=== PATIENT | female | born 1965 | race Caucasian/White ===

== ENCOUNTER → 2016-09-24 | Outpatient (CLI) | payer OTHER ==
[~2016-09-24] MED LIST: AMBIEN10 MG PO; ANAPROX DS550 MG PO; ASPIRIN CHILDRE81 MG PO; AUGMENTIN 875 M1 TAB PO; BISOPROLOL5 MG PO; BUSPAR5 MG PO; CARDIZEM120 MG PO; CARDIZEM5 MG/ML PO; CLARITIN-D 12 H1 TAB PO; CLARITIN10 MG PO; COMPAZINE10 MG PO; CYMBALTA60 MG PO; DAYPRO600 M1 PO; ERGOCALCIFER50000 IU; FERROUS SULFAT324 M2 PO; FLAGYL500 MG PO; FLEXERIL10 MG PO; FLONASE 0.05% 121 EA NAS; FLONASE0.05 MG/AC NS; FORADIL AERO0.012 MG INH; LOMOTIL 0.025 M1 TAB PO; MEDROL DOSEPAK4 MG PO; PERIDEX 480 ML480 ML PO; PROTONIX40 MG PO; PROZAC10 MG PO; QVAR0.08 MG/AC INH; QVAR40 MCG INH; ROBAXIN750 MG PO; SINGULAIR10 MG PO; VENTOLIN0.09 MG/AC IH; VICODIN 500 MG-1 TAB PO; VISTARIL50 MG PO; Ventolin 02.5 MG/3 M; ZANTAC150 MG PO
== END | disposition home or self-care (01) ==
LOC: RAD 15:39
DX: M25.512 Pain in left shoulder (principal)

== ENCOUNTER → 2016-11-25 | Outpatient (CLI) | payer OTHER ==
[2016-11-25 16:51] LABS: BASO % 0.2 % (0.0-1.0); EOS # 0.2 10*3/uL (0.0-0.4); EOS % 1.5 % (1.0-4.0); HEMATOCRIT 42.4 % (37.0-47.0); HEMOGLOBIN 13.9 g/dl (12.0-16.0); IG # 0.1 10*3/uL (0.0-0.1); LYMPH # 2.9 10*3/uL (1.3-4.4); LYMPH % 24.2 % (27.0-41.0); MEAN CELL VOLUME 85.5 fl (81.0-99.0); MEAN CORPUSCULAR HGB CONC 32.8 g/dl (33.0-37.0); MEAN PLATELET VOLUME 8.9 fl (9.6-12.3); MONO # 0.7 10*3/uL (0.1-1.0); MONO % 6.1 % (3.0-9.0); NEUT # 8.1 10*3/uL (2.3-7.9); NEUT % 67.3 % (47.0-73.0); PLATELET COUNT AUTOMATED 375 10*3/uL (130-400); RED BLOOD COUNT 4.96 10*6/uL (4.10-5.10); RED CELL DISTRI WIDTH 14.8 % (0-14.5); WHITE BLOOD COUNT 12.1 10*3/uL (4.8-10.8)
== END | disposition home or self-care (01) ==
LOC: LAB 16:09
PROVIDERS: Family Medicine
DX: D72.829 Elevated white blood cell count, unspecified (principal); R70.0 Elevated erythrocyte sedimentation rate; R79.82 Elevated C-reactive protein (CRP)

== ENCOUNTER → 2017-01-28 | Outpatient (CLI) | payer OTHER ==
[2017-01-28 15:41] LABS: BASO % 0.4 % (0.0-1.0); EOS # 0.2 10*3/uL (0.0-0.4); EOS % 1.9 % (1.0-4.0); HEMATOCRIT 38.8 % (37.0-47.0); HEMOGLOBIN 12.7 g/dl (12.0-16.0); IG # 0.1 10*3/uL (0.0-0.1); LYMPH # 1.9 10*3/uL (1.3-4.4); LYMPH % 18.1 % (27.0-41.0); MEAN CELL VOLUME 85.7 fl (81.0-99.0); MEAN CORPUSCULAR HGB CONC 32.7 g/dl (33.0-37.0); MEAN PLATELET VOLUME 8.8 fl (9.6-12.3); MONO # 0.6 10*3/uL (0.1-1.0); MONO % 5.6 % (3.0-9.0); NEUT # 7.6 10*3/uL (2.3-7.9); NEUT % 72.8 % (47.0-73.0); PLATELET COUNT AUTOMATED 339 10*3/uL (130-400); RED BLOOD COUNT 4.53 10*6/uL (4.10-5.10); RED CELL DISTRI WIDTH 14.6 % (0-14.5); WHITE BLOOD COUNT 10.4 10*3/uL (4.8-10.8)
[2017-01-29 08:14] LABS: RHEUMATOID ARTHRITIS FACTOR <10.0 IU/mL (0.0-13.9)
== END | disposition home or self-care (01) ==
LOC: LAB 15:05
PROVIDERS: Family Medicine
DX: D72.829 Elevated white blood cell count, unspecified (principal); R70.0 Elevated erythrocyte sedimentation rate

== ENCOUNTER → 2017-03-02 | Outpatient (CLI) | payer OTHER | END | disposition home or self-care (01) | LOC: LAB 14:36 | DX: E55.9 Vitamin D deficiency, unspecified (principal); R70.0 Elevated erythrocyte sedimentation rate; R79.82 Elevated C-reactive protein (CRP) ==

== ENCOUNTER → 2017-06-14 | Outpatient (CLI) | payer OTHER | END | disposition home or self-care (01) | LOC: RAD 15:33 | DX: M48.061 Spinal stenosis, lumbar region without neurogenic claudication (principal); M77.8 Other enthesopathies, not elsewhere classified ==

== ENCOUNTER → 2017-12-28 | Outpatient (CLI) | payer OTHER ==
[2017-12-28 11:30] LABS: BUN 19 mg/dl (7-24); CREATININE 1.05 mg/dL (0.55-1.02)
== END | disposition home or self-care (01) ==
LOC: CT 11:00 → LAB 11:01
PROVIDERS: Family Medicine
DX: M51.26 Other intervertebral disc displacement, lumbar region (principal)

== ENCOUNTER 2018-08-14 15:23 | Emergency (ER) | payer OTHER ==
[~2018-08-14] VITALS: Ht 170.1 cm; Wt 127.0 kg
--- NOTE | ~2018-08-14 | EKG ---
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
[2018-08-14 15:59] LABS: BASO % 0.4 % (0.0-1.0); EOS # 0.3 10*3/uL (0.0-0.4); EOS % 2.3 % (1.0-4.0); HEMATOCRIT 37.8 % (37.0-47.0); HEMOGLOBIN 12.5 g/dl (12.0-16.0); LYMPH # 2.6 10*3/uL (1.3-4.4); LYMPH % 23.1 % (27.0-41.0); MEAN CELL VOLUME 83.3 fl (81.0-99.0); MEAN CORPUSCULAR HGB 27.5 pg (27.0-31.0); MEAN CORPUSCULAR HGB CONC 33.1 g/dl (33.0-37.0); MEAN PLATELET VOLUME 8.9 fl (9.6-12.3); MONO # 0.7 10*3/uL (0.1-1.0); MONO % 6.6 % (3.0-9.0); NEUT # 7.4 10*3/uL (2.3-7.9); NEUT % 66.9 % (47.0-73.0); PLATELET COUNT AUTOMATED 352 10*3/uL (130-400); RED BLOOD COUNT 4.54 10*6/uL (4.10-5.10); RED CELL DISTRI WIDTH 14.7 % (0-14.5)
[2018-08-14 16:17] LABS: ALBUMIN 3.5 gm/dl (3.1-4.5); ALKALINE PHOSPHATASE 84 U/L (45-117); BUN 11 mg/dl (7-24); CHLORIDE 105 mmol/L (98-107); CREATININE 0.91 mg/dL (0.55-1.02); INTERNATIONAL NORM RATIO 0.9 (2.0-3.5); LIPASE 216 U/L (73-393); POTASSIUM 3.9 mmol/L (3.5-5.1); SGOT/AST 13 IU/L (3-35); SGPT/ALT 19 U/L (12-78); SODIUM 136 mmol/L (136-145); TOTAL PROTEIN 7.5 gm/dL (6.4-8.2)
[2018-08-14 16:18] LABS: TROPONIN I < 0.015 ng/ml (<0.045)
[2018-08-14 18:14] VITALS: BP 115/63
[2018-08-14] MEDS ORDERED: NAPROSYN500 MG PO (20:29)
== END 2018-08-14 20:32 | disposition home or self-care (01) ==
LOC: ED 15:23
PROVIDERS: Physician Assistant
DX: M54.6 Pain in thoracic spine (principal); Z88.6 Allergy status to analgesic agent; Z91.040 Latex allergy status; Z88.8 Allergy status to other drugs, medicaments and biological substances; Z79.899 Other long term (current) drug therapy

== ENCOUNTER → 2018-08-19 | Outpatient (CLI) | payer OTHER ==
[~2018-08-19] MED LIST changes: +NAPROSYN500 MG PO
[2018-08-19 18:51] LABS: THYROID STIM HORMONE (HS) 0.495 uIU/ml (0.358-4.75)
== END | disposition home or self-care (01) ==
LOC: LAB 16:13
PROVIDERS: Family Medicine
DX: E04.9 Nontoxic goiter, unspecified (principal); R73.9 Hyperglycemia, unspecified

== ENCOUNTER → 2018-09-07 | Outpatient (CLI) | payer OTHER | LOC: US 08-26 01:32 | DX: E04.2 Nontoxic multinodular goiter (principal); R73.9 Hyperglycemia, unspecified ==

== ENCOUNTER → 2018-09-27 | Day surgery (SDC) | payer OTHER | END | disposition home or self-care (01) | LOC: SDC 08:07 | PROVIDERS: Family Medicine | DX: E04.1 Nontoxic single thyroid nodule (principal); Z79.899 Other long term (current) drug therapy; Z79.1 Long term (current) use of non-steroidal anti-inflammatories (NSAID); Z88.8 Allergy status to other drugs, medicaments and biological substances; Z91.040 Latex allergy status ==

== ENCOUNTER 2018-10-14 17:13 | Emergency (ER) | payer OTHER ==
[2018-10-14 17:18] VITALS: BP 157/81
== END 2018-10-14 19:52 | disposition home or self-care (01) ==
LOC: ED 17:13
DX: S69.91XA Unspecified injury of right wrist, hand and finger(s), initial encounter (principal); Z88.6 Allergy status to analgesic agent; Z91.040 Latex allergy status; Z88.8 Allergy status to other drugs, medicaments and biological substances; Z79.899 Other long term (current) drug therapy; W18.11XA Fall from or off toilet without subsequent striking against object, initial encounter; Y93.89 Activity, other specified; Y92.89 Other specified places as the place of occurrence of the external cause; Y99.8 Other external cause status

== ENCOUNTER → 2019-10-17 | Outpatient (CLI) | payer OTHER ==
[2019-10-17 16:56] LABS: BASO % 0.3 % (0.0-1.0); EOS # 0.3 10*3/uL (0.0-0.4); EOS % 2.5 % (1.0-4.0); HEMATOCRIT 42.5 % (37.0-47.0); HEMOGLOBIN 13.6 g/dl (12.0-16.0); LYMPH # 3.1 10*3/uL (1.3-4.4); LYMPH % 28.4 % (27.0-41.0); MEAN CELL VOLUME 85.3 fl (81.0-99.0); MEAN CORPUSCULAR HGB 27.3 pg (27.0-31.0); MEAN PLATELET VOLUME 9.1 fl (9.6-12.3); MONO # 0.7 10*3/uL (0.1-1.0); MONO % 6.4 % (3.0-9.0); NEUT # 6.8 10*3/uL (2.3-7.9); NEUT % 61.9 % (47.0-73.0); PLATELET COUNT AUTOMATED 372 10*3/uL (130-400); RED BLOOD COUNT 4.98 10*6/uL (4.10-5.10); RED CELL DISTRI WIDTH 15.7 % (0-14.5); WHITE BLOOD COUNT 10.9 10*3/uL (4.8-10.8)
[2019-10-17 17:12] LABS: ALKALINE PHOSPHATASE 87 U/L (45-117); BILIRUBIN, DIRECT 0.1 mg/dL (0.0-0.2); BUN 14 mg/dl (7-24); CHLORIDE 106 mmol/L (98-107); CHOLESTEROL 193 mg/dL (<200); CREATININE 0.97 mg/dL (0.55-1.02); HDL CHOLESTEROL 41 mg/dl (40-60); LDL CHOLESTEROL 105 mg/dL (9-159); POTASSIUM 3.7 mmol/L (3.5-5.1); SGOT/AST 13 IU/L (3-35); SGPT/ALT 23 U/L (12-78); SODIUM 138 mmol/L (136-145); THYROXINE (T4) TOTAL 9.5 ug/dl (4.8-13.9); TRIGLYCERIDES 233 mg/dl (<150); VLDL CHOLESTEROL 47 mg/dL (6-40)
[2019-10-17 17:18] LABS: THYROID STIM HORMONE (HS) 0.309 uIU/ml (0.358-4.75)
== END | disposition home or self-care (01) ==
LOC: LAB 16:32
PROVIDERS: Family Medicine
DX: E11.9 Type 2 diabetes mellitus without complications (principal); I10 Essential (primary) hypertension

== ENCOUNTER → 2019-11-07 | Outpatient (CLI) | payer OTHER | END | disposition home or self-care (01) | LOC: RAD 11-03 14:00 | DX: N95.9 Unspecified menopausal and perimenopausal disorder (principal) ==

== ENCOUNTER 2019-12-06 13:54 | Emergency (ER) | payer OTHER ==
[~2019-12-06] VITALS: Ht 170.1 cm; Wt 127.0 kg
[2019-12-06 14:00] VITALS: BP 127/66
[2019-12-06] MEDS ORDERED: METHOCARBAMOL500 M1 PO (15:35)
[2019-12-06] MEDS ORDERED: AMOXICILLIN500 M2 PO (15:35)
== END 2019-12-06 15:41 | disposition home or self-care (01) ==
LOC: ED 13:54
DX: S16.1XXA Strain of muscle, fascia and tendon at neck level, initial encounter (principal); H66.91 Otitis media, unspecified, right ear; Z88.6 Allergy status to analgesic agent; Z88.8 Allergy status to other drugs, medicaments and biological substances; Z91.040 Latex allergy status; Z79.899 Other long term (current) drug therapy; X58.XXXA Exposure to other specified factors, initial encounter; Y93.89 Activity, other specified; Y92.89 Other specified places as the place of occurrence of the external cause; Y99.8 Other external cause status

== ENCOUNTER 2020-01-27 12:55 | Emergency (ER) | payer OTHER ==
[~2020-01-27] VITALS: Ht 170.1 cm; Wt 127.0 kg
[~2020-01-27 12:55] MED LIST changes: +AMOXICILLIN500 M2 PO; +METHOCARBAMOL500 M1 PO
[2020-01-27 13:05] VITALS: BP 128/70
[2020-01-27] MEDS ORDERED: PREDNISONE20 M1 PO ×2 (15:23→15:33)
[2020-01-27] MEDS ORDERED: CYCLOBENZAPRINE10 MG PO ×2 (15:23→15:33)
[2020-01-27] MEDS ORDERED: IBU800 MG PO ×2 (15:23→15:33)
== END 2020-01-27 15:44 | disposition home or self-care (01) ==
LOC: ED 12:55
DX: S29.012A Strain of muscle and tendon of back wall of thorax, initial encounter (principal); M54.5 Low back pain; G89.29 Other chronic pain; M62.838 Other muscle spasm; Z88.8 Allergy status to other drugs, medicaments and biological substances; Z91.040 Latex allergy status; Z79.899 Other long term (current) drug therapy; Z79.2 Long term (current) use of antibiotics; X58.XXXA Exposure to other specified factors, initial encounter; Y93.89 Activity, other specified; Y92.89 Other specified places as the place of occurrence of the external cause; Y99.8 Other external cause status

== ENCOUNTER → 2020-04-04 | Outpatient (CLI) | payer OTHER ==
[~2020-04-04] MED LIST changes: +CYCLOBENZAPRINE10 MG PO; +IBU800 MG PO; +PREDNISONE20 M1 PO
[2020-04-04 16:54] LABS: BASO % 0.4 % (0.0-1.0); EOS # 0.2 10*3/uL (0.0-0.4); EOS % 2.1 % (1.0-4.0); HEMATOCRIT 40.1 % (37.0-47.0); LYMPH # 2.8 10*3/uL (1.3-4.4); LYMPH % 32.8 % (27.0-41.0); MEAN CELL VOLUME 84.2 fl (81.0-99.0); MEAN CORPUSCULAR HGB 26.9 pg (27.0-31.0); MEAN CORPUSCULAR HGB CONC 31.9 g/dl (33.0-37.0); MONO # 0.7 10*3/uL (0.1-1.0); MONO % 8.6 % (3.0-9.0); NEUT # 4.7 10*3/uL (2.3-7.9); NEUT % 55.7 % (47.0-73.0); PLATELET COUNT AUTOMATED 335 10*3/uL (130-400); RED BLOOD COUNT 4.76 10*6/uL (4.10-5.10); RED CELL DISTRI WIDTH 15.2 % (0-14.5); WHITE BLOOD COUNT 8.5 10*3/uL (4.8-10.8)
== END | disposition home or self-care (01) ==
LOC: LAB 04:48 → US 17:00
PROVIDERS: Nurse Practitioner Women's Health
DX: N93.9 Abnormal uterine and vaginal bleeding, unspecified (principal); R53.83 Other fatigue; R73.03 Prediabetes

== ENCOUNTER 2020-04-27 12:28 | Observation (INO) | payer OTHER ==
[~2020-04-27] VITALS: Ht 170.1 cm; Wt 131.7 kg
--- NOTE | 2020-04-27 13:20 | NUR ---
PATIENT DENIES WOUNDS. A&OX4.
[2020-04-27 13:21] VITALS: BP 97/80
[2020-04-27 13:47] LABS: BASO % 0.5 % (0.0-1.0); EOS # 0.2 10*3/uL (0.0-0.4); EOS % 1.7 % (1.0-4.0); HEMATOCRIT 38.9 % (37.0-47.0); LYMPH # 2.2 10*3/uL (1.3-4.4); LYMPH % 24.6 % (27.0-41.0); MEAN CELL VOLUME 84.9 fl (81.0-99.0); MEAN CORPUSCULAR HGB 27.3 pg (27.0-31.0); MEAN CORPUSCULAR HGB CONC 32.1 g/dl (33.0-37.0); MEAN PLATELET VOLUME 8.9 fl (9.6-12.3); MONO # 0.5 10*3/uL (0.1-1.0); MONO % 6.1 % (3.0-9.0); NEUT # 5.9 10*3/uL (2.3-7.9); NEUT % 66.5 % (47.0-73.0); PLATELET COUNT AUTOMATED 305 10*3/uL (130-400); RED BLOOD COUNT 4.58 10*6/uL (4.10-5.10); WHITE BLOOD COUNT 8.9 10*3/uL (4.8-10.8)
[2020-04-27 13:58] LABS: ACT PARTIAL THROMBO TIME 24.4 SECONDS (20.0-32.1)
[2020-04-27 14:09] LABS: ALBUMIN 3.8 gm/dl (3.1-4.5); ALKALINE PHOSPHATASE 71 U/L (45-117); BUN 15 mg/dl (7-24); CHLORIDE 107 mmol/L (98-107); CREATININE 0.86 mg/dL (0.55-1.02); LIPASE 162 U/L (73-393); POTASSIUM 4.1 mmol/L (3.5-5.1); SGOT/AST 17 IU/L (3-35); SGPT/ALT 21 U/L (12-78); SODIUM 142 mmol/L (136-145); TOTAL PROTEIN 7.6 gm/dL (6.4-8.2)
[2020-04-27 14:11] LABS: TROPONIN I < 0.015 ng/ml (<0.045)
--- NOTE | 2020-04-27 14:15 | NUR ---
PATIENT STATES SHE HAS HAD A LITTLE RELIEF FORM THE NITRO. CHEST PRESSURE HAS DECREASED.
[2020-04-27 15:43] VITALS: BP 131/81
--- NOTE | 2020-04-27 15:47 | NUR ---
PATIENT TRANSPORTED TO 4TH FLOOR AT THIS TIME. REPORT GIVEN TO CHARLY CLAROS. SBAR FAXED. ALEXI CLAROS TRANSPORTED PATIENT TO 4TH FLOOR. NO CHANGE IN PATIENT STATUS.
[2020-04-27] MEDS ORDERED: NEURONTIN300 MG PO (16:02)
[2020-04-27] MEDS ORDERED: REXULTI2 MG PO (16:03)
[2020-04-27] MEDS ORDERED: REMERON30 M1 PO (16:05)
[2020-04-27 16:14] VITALS: BP 140/63
--- NOTE | 2020-04-27 16:14 | NUR ---
[facility] 55, admitted to , under the services of OBDULIO Bonilla DO with a diagnosis of CHEST PAIN. Chief complaint is DENIES C/O. Patient arrived via bed from ER. Monitor applied. Initial assessment completed. Vital signs taken and recorded. OBDULIO BONILLA DO notified of admission to the unit. Orders received. See assessment for past medical history, medications and allergies. Patient and/or family oriented to unit. [facility] visitation policy reviewed. Clothing/patient valuable form completed. CHARLY GOMEZ
--- NOTE | 2020-04-27 19:35 | NUR ---
PRN IBUPROFEN GIVEN FOR PT COMPLAINTS OF A MILD HEADACHE. RATING IT 4/10. CALL LIGHT WITHIN REACH, WILL MONITOR
[2020-04-27] MEDS ORDERED: COREG12.5 M1 PO (19:41)
--- NOTE | 2020-04-27 19:46 | NUR ---
ASKED PATIENT WHAT MEDICATION SHE WOULD NEED FOR THE NIGHT ONE HER MEDICATION CLAIMS HISTORY. BEGAN GOING OVER MEDICATIONS AND SHE STATED A COUPLE OF THE MEDICINES WERE TWICE A DAY AND SOME HAVE BEEN CHANGED. ASKED PATIENT IF SHE WOULD BE ABLE TO HAVE HER BRING THE MEDICATIONS IN SO WE CAN GET THE RIGHT MEDICATIONS FOR HER MED REC. SHE STATED SHE WILL TRY AND GET A HOLD OF HIM SO HE CAN BRING THEM IN. INSTRUCTED PATIENT TO HAVE HIM DROP THE MEDICATIONS OFF AT THE ER LOBBY AND THIS NURSE WILL GO GET THEM
[2020-04-27 20:00] VITALS: BP 122/73
--- NOTE | 2020-04-27 20:30 | NUR ---
PRN IBUPROFEN EFFECTIVE PER PT
[2020-04-27] MEDS ORDERED: PROPAFENONE HC150 MG PO (21:00)
[2020-04-27] MEDS ORDERED: STIMULANT LAXA1 EACH PO (21:03)
[2020-04-27] MEDS ORDERED: VITAMIN D3125 MC1 PO (21:06)
[2020-04-27] MEDS ORDERED: HYDROCORTISONE30 GM T (21:07)
--- NOTE | 2020-04-27 21:14 | NUR ---
NOTIFIED DR. FRANCE OF UPDATED MED LIST
--- NOTE | 2020-04-27 21:14 | NUR ---
PATIENTS BROUGHT MEDICATIONS IN FROM HOME. MED REC UPDATED PER PT AND MEDICATIONS BROUGHT FROM HOME
--- NOTE | 2020-04-27 21:56 | NUR ---
OK PER DR. FRANCE TO CONTINUE PATIENTS REXULTI
[2020-04-28] VITALS: BP 127/74
--- NOTE | 2020-04-28 01:45 | NUR ---
PATIENT SLEEPING, NO DISTRESS NOTED. CALL LIGHT WTIHIN REACH, WILL MONITOR
--- NOTE | 2020-04-28 01:48 | NUR ---
24 HR chart check completed.
[2020-04-28 06:16] LABS: BASO % 0.4 % (0.0-1.0); EOS # 0.3 10*3/uL (0.0-0.4); HEMATOCRIT 37.2 % (37.0-47.0); LYMPH # 3.4 10*3/uL (1.3-4.4); LYMPH % 34.4 % (27.0-41.0); MEAN CELL VOLUME 83.6 fl (81.0-99.0); MEAN CORPUSCULAR HGB 26.7 pg (27.0-31.0); MEAN PLATELET VOLUME 9.2 fl (9.6-12.3); MONO # 0.8 10*3/uL (0.1-1.0); MONO % 7.5 % (3.0-9.0); NEUT # 5.4 10*3/uL (2.3-7.9); NEUT % 54.2 % (47.0-73.0); PLATELET COUNT AUTOMATED 284 10*3/uL (130-400); RED BLOOD COUNT 4.45 10*6/uL (4.10-5.10); RED CELL DISTRI WIDTH 15.1 % (0-14.5); WHITE BLOOD COUNT 9.9 10*3/uL (4.8-10.8)
[2020-04-28 06:36] LABS: ACT PARTIAL THROMBO TIME 24.9 SECONDS (20.0-32.1)
[2020-04-28 06:44] LABS: ALBUMIN 3.4 gm/dl (3.1-4.5); ALKALINE PHOSPHATASE 64 U/L (45-117); BUN 17 mg/dl (7-24); CHLORIDE 107 mmol/L (98-107); CHOLESTEROL 203 mg/dL (<200); CREATININE 0.89 mg/dL (0.55-1.02); FREE T4 0.91 ng/dl (0.76-1.46); POTASSIUM 3.5 mmol/L (3.5-5.1); SGOT/AST 11 IU/L (3-35); SGPT/ALT 22 U/L (12-78); SODIUM 140 mmol/L (136-145); TOTAL PROTEIN 6.8 gm/dL (6.4-8.2)
[2020-04-28 06:48] LABS: HDL CHOLESTEROL 44 mg/dl (40-60); LDL CHOLESTEROL 125 mg/dL (9-159); THYROID STIM HORMONE (HS) 0.498 uIU/ml (0.358-4.75); TRIGLYCERIDES 172 mg/dl (<150); VLDL CHOLESTEROL 34 mg/dL (6-40)
[2020-04-28 07:32] LABS: VITAMIN D, 25-HYDROXY 65.1 ng/mL (30-100)
[2020-04-28 08:00] VITALS: BP 137/86
--- NOTE | 2020-04-28 08:38 | NUR ---
24 HR chart check completed.
--- NOTE | 2020-04-28 09:30 | NUR ---
RESTING IN BED WITH NO ACUTE DISTRESS NOTED. RESPIRATIONS EASY. LUNGS DIMINISHED, CLEAR. PULSE OX 98% RA. DENIES CHEST PAIN. CALL LIGHT WITHIN REACH. NO VOICED COMPLAINTS
--- NOTE | 2020-04-28 10:45 | NUR ---
DR PERAZA AND RESIDENTS PRESENT ON FLOOR TO ROUND AND DISCUSS PLAN OF CARE
--- NOTE | 2020-04-28 12:45 | NUR ---
Discharge instructions reviewed with patient/family. Patient receptive and verbalizes understanding. Written instructions given to patient/family. PATIENT DISCHARGED VIA WC. ANNA DOCKERY
== END 2020-04-28 12:45 | disposition home or self-care (01) ==
LOC: ED 12:28 → EDHOLD 15:00 → 4E 15:36
PROVIDERS: Nurse Practitioner Family; Social Worker Clinical; ADMIT Student in an Organized Health Care Education/Training Program
DX: R07.89 Other chest pain (principal); E83.41 Hypermagnesemia; R73.9 Hyperglycemia, unspecified; R79.82 Elevated C-reactive protein (CRP); M54.5 Low back pain; G89.29 Other chronic pain; I10 Essential (primary) hypertension; I48.0 Paroxysmal atrial fibrillation

== ENCOUNTER 2020-06-22 15:09 | Emergency (ER) | payer OTHER ==
[~2020-06-22] VITALS: Ht 170.1 cm; Wt 127.0 kg
[~2020-06-22 15:09] MED LIST changes: +COREG12.5 M1 PO; +HYDROCORTISONE30 GM T; +NEURONTIN300 MG PO; +PROPAFENONE HC150 MG PO; +REMERON30 M1 PO; +REXULTI2 MG PO; +STIMULANT LAXA1 EACH PO; +VITAMIN D3125 MC1 PO
[2020-06-22 15:17] VITALS: BP 136/68
[2020-06-22] MEDS ORDERED: OFLOXACIN OTIC5 ML OPH (15:53)
== END 2020-06-22 16:15 | disposition home or self-care (01) ==
LOC: ED 15:09
DX: H60.91 Unspecified otitis externa, right ear (principal); Z91.040 Latex allergy status; Z88.8 Allergy status to other drugs, medicaments and biological substances; Z79.899 Other long term (current) drug therapy

== ENCOUNTER 2020-09-16 08:26 | Emergency (ER) | payer OTHER ==
[~2020-09-16] VITALS: Ht 170.1 cm; Wt 127.0 kg
[~2020-09-16 08:26] MED LIST changes: +OFLOXACIN OTIC5 ML OPH
[2020-09-16 08:35] VITALS: BP 136/84
== END 2020-09-16 09:47 | disposition home or self-care (01) ==
LOC: ED 08:26
DX: J06.9 Acute upper respiratory infection, unspecified (principal); K21.9 Gastro-esophageal reflux disease without esophagitis; I10 Essential (primary) hypertension; M19.09 Primary osteoarthritis, other specified site; F32.9 Major depressive disorder, single episode, unspecified; F41.9 Anxiety disorder, unspecified; Z20.822 Contact with and (suspected) exposure to COVID-19; Z88.6 Allergy status to analgesic agent; Z88.8 Allergy status to other drugs, medicaments and biological substances; Z91.040 Latex allergy status; Z79.899 Other long term (current) drug therapy; Z98.890 Other specified postprocedural states; Z90.89 Acquired absence of other organs; Z87.891 Personal history of nicotine dependence

== ENCOUNTER → 2020-09-26 | Outpatient (CLI) | payer OTHER | END | disposition home or self-care (01) | LOC: RAD 11:51 | PROVIDERS: ATTEND Family Medicine | DX: M47.812 Spondylosis without myelopathy or radiculopathy, cervical region (principal); R06.02 Shortness of breath; M25.78 Osteophyte, vertebrae ==

== ENCOUNTER 2020-11-14 09:53 | Emergency (ER) | payer OTHER ==
[2020-11-14 09:58] VITALS: BP 152/81
[2020-11-14 10:43] LABS: BASO % 0.4 % (0.0-1.0); EOS # 0.2 10*3/uL (0.0-0.4); EOS % 2.1 % (1.0-4.0); HEMATOCRIT 39.9 % (37.0-47.0); LYMPH # 2.2 10*3/uL (1.3-4.4); LYMPH % 27.6 % (27.0-41.0); MEAN CELL VOLUME 86.4 fl (81.0-99.0); MEAN CORPUSCULAR HGB 26.8 pg (27.0-31.0); MEAN CORPUSCULAR HGB CONC 31.1 g/dl (33.0-37.0); MEAN PLATELET VOLUME 9.1 fl (9.6-12.3); MONO # 0.6 10*3/uL (0.1-1.0); MONO % 7.4 % (3.0-9.0); NEUT % 61.8 % (47.0-73.0); PLATELET COUNT AUTOMATED 306 10*3/uL (130-400); RED BLOOD COUNT 4.62 10*6/uL (4.10-5.10); RED CELL DISTRI WIDTH 16.1 % (0-14.5); WHITE BLOOD COUNT 8.1 10*3/uL (4.8-10.8)
[2020-11-14 10:54] LABS: INTERNATIONAL NORM RATIO 0.9 (2.0-3.5)
[2020-11-14 11:00] LABS: ALBUMIN 3.4 gm/dl (3.1-4.5); ALKALINE PHOSPHATASE 80 U/L (45-117); BUN 21 mg/dl (7-24); CHLORIDE 110 mmol/L (98-107); CREATININE 1.06 mg/dL (0.55-1.02); POTASSIUM 3.9 mmol/L (3.5-5.1); SGOT/AST 11 IU/L (3-35); SGPT/ALT 19 U/L (12-78); SODIUM 144 mmol/L (136-145); TOTAL PROTEIN 7.3 gm/dL (6.4-8.2)
[2020-11-14 11:04] LABS: TROPONIN I < 0.015 ng/ml (<0.045)
[2020-11-14] MEDS ORDERED: MEDROL DOSEPAK4 MG PO ×3 (13:29→13:58)
== END 2020-11-14 13:46 | disposition home or self-care (01) ==
LOC: ED 09:53
PROVIDERS: Emergency Medicine
DX: J45.901 Unspecified asthma with (acute) exacerbation (principal); I10 Essential (primary) hypertension; K21.9 Gastro-esophageal reflux disease without esophagitis; F41.9 Anxiety disorder, unspecified; F32.9 Major depressive disorder, single episode, unspecified; M19.90 Unspecified osteoarthritis, unspecified site; Z91.040 Latex allergy status; Z88.8 Allergy status to other drugs, medicaments and biological substances; Z79.899 Other long term (current) drug therapy; Z98.890 Other specified postprocedural states

== ENCOUNTER → 2021-01-03 | Outpatient (CLI) | payer OTHER | END | disposition home or self-care (01) | LOC: RAD 14:22 | PROVIDERS: ATTEND Family Medicine | DX: M51.34 Other intervertebral disc degeneration, thoracic region (principal); M48.04 Spinal stenosis, thoracic region; M25.78 Osteophyte, vertebrae ==

== ENCOUNTER 2021-03-24 12:24 | Inpatient (IN) | payer OTHER ==
[~2021-03-24] VITALS: Ht 170.2 cm; Wt 139.0 kg
[2021-03-24 12:37] VITALS: BP 132/68
[2021-03-24 12:55] LABS: BASO % 0.3 % (0.0-1.0); EOS # 0.3 10*3/uL (0.0-0.4); HEMATOCRIT 39.6 % (37.0-47.0); LYMPH # 2.2 10*3/uL (1.3-4.4); LYMPH % 23.4 % (27.0-41.0); MEAN CELL VOLUME 84.1 fl (81.0-99.0); MEAN CORPUSCULAR HGB CONC 32.1 g/dl (33.0-37.0); MEAN PLATELET VOLUME 9.2 fl (9.6-12.3); MONO # 0.7 10*3/uL (0.1-1.0); MONO % 7.9 % (3.0-9.0); NEUT # 6.1 10*3/uL (2.3-7.9); NEUT % 64.7 % (47.0-73.0); PLATELET COUNT AUTOMATED 359 10*3/uL (130-400); RED BLOOD COUNT 4.71 10*6/uL (4.10-5.10); RED CELL DISTRI WIDTH 15.1 % (0-14.5); WHITE BLOOD COUNT 9.4 10*3/uL (4.8-10.8)
[2021-03-24 13:14] LABS: ALBUMIN 3.6 gm/dl (3.1-4.5); ALKALINE PHOSPHATASE 89 U/L (45-117); BUN 16 mg/dl (7-24); CHLORIDE 107 mmol/L (98-107); CREATININE 0.93 mg/dL (0.55-1.02); POTASSIUM 3.8 mmol/L (3.5-5.1); SGOT/AST 13 IU/L (3-35); SGPT/ALT 19 U/L (12-78); SODIUM 138 mmol/L (136-145); TOTAL PROTEIN 7.4 gm/dL (6.4-8.2)
[2021-03-24 13:16] LABS: TROPONIN I < 0.015 ng/ml (<0.045)
[2021-03-24 13:52] VITALS: BP 126/77
[2021-03-24 17:07] VITALS: BP 137/78
[2021-03-24 18:52] VITALS: BP 116/68
[2021-03-24] MEDS ORDERED: SYMB160 INH (21:36)
[2021-03-24] MEDS ORDERED: NEURONTIN300 MG PO (21:37)
[2021-03-25 00:45] VITALS: BP 103/61
[2021-03-25 04:23] VITALS: BP 118/77
[2021-03-25 05:38] LABS: ALBUMIN 3.4 gm/dl (3.1-4.5); BUN 19 mg/dl (7-24); CHLORIDE 107 mmol/L (98-107); POTASSIUM 3.5 mmol/L (3.5-5.1); SODIUM 137 mmol/L (136-145)
[2021-03-25 05:41] LABS: ALKALINE PHOSPHATASE 82 U/L (45-117); CHOLESTEROL 192 mg/dL (<200); CREATININE 0.97 mg/dL (0.55-1.02); SGOT/AST 14 IU/L (3-35); SGPT/ALT 18 U/L (12-78); TOTAL PROTEIN 7.2 gm/dL (6.4-8.2); TRIGLYCERIDES 187 mg/dl (<150)
[2021-03-25 05:47] LABS: LDL CHOLESTEROL 116 mg/dL (9-159)
[2021-03-25 06:05] LABS: BASO # 0.1 10*3/uL (0.0-0.1); BASO % 0.5 % (0.0-1.0); EOS # 0.4 10*3/uL (0.0-0.4); EOS % 3.4 % (1.0-4.0); HEMATOCRIT 38.1 % (37.0-47.0); LYMPH # 3.3 10*3/uL (1.3-4.4); LYMPH % 30.4 % (27.0-41.0); MEAN CELL VOLUME 85.2 fl (81.0-99.0); MEAN CORPUSCULAR HGB 27.1 pg (27.0-31.0); MEAN CORPUSCULAR HGB CONC 31.8 g/dl (33.0-37.0); MEAN PLATELET VOLUME 9.4 fl (9.6-12.3); MONO # 0.9 10*3/uL (0.1-1.0); MONO % 8.5 % (3.0-9.0); NEUT # 6.2 10*3/uL (2.3-7.9); NEUT % 56.5 % (47.0-73.0); PLATELET COUNT AUTOMATED 349 10*3/uL (130-400); RED BLOOD COUNT 4.47 10*6/uL (4.10-5.10); RED CELL DISTRI WIDTH 15.5 % (0-14.5)
[2021-03-25 07:06] VITALS: BP 123/71
[2021-03-25 12:00] VITALS: BP 130/74
[2021-03-25] MEDS ORDERED: PANTOPRAZOLE SO40 MG PO (14:49)
== END 2021-03-25 17:50 | disposition home or self-care (01) | DRG 243 ==
LOC: ED 12:24 → 4E 15:02 → EDHOLD 15:02 → 4E 03-25 06:55
PROVIDERS: Emergency Medicine; Student in an Organized Health Care Education/Training Program; ADMIT Internal Medicine; ATTEND Internal Medicine
PROC: 4A02XM4 Measurement of Cardiac Total Activity, External Approach (ICD-10-PCS; principal; 2021-03-25)
PROC: 3E073KZ Introduction of Other Diagnostic Substance into Coronary Artery, Percutaneous Approach (ICD-10-PCS; 2021-03-25)
DX: K21.9 Gastro-esophageal reflux disease without esophagitis (principal); E83.41 Hypermagnesemia; M54.5 Low back pain; F32.9 Major depressive disorder, single episode, unspecified; G62.9 Polyneuropathy, unspecified; I10 Essential (primary) hypertension; G89.29 Other chronic pain; R73.9 Hyperglycemia, unspecified; D72.810 Lymphocytopenia; E78.1 Pure hyperglyceridemia; E66.9 Obesity, unspecified; Z82.0 Family history of epilepsy and other diseases of the nervous system; Z80.52 Family history of malignant neoplasm of bladder; Z91.041 Radiographic dye allergy status; Z87.09 Personal history of other diseases of the respiratory system; Z91.040 Latex allergy status; Z88.8 Allergy status to other drugs, medicaments and biological substances; Z88.6 Allergy status to analgesic agent; Z79.899 Other long term (current) drug therapy; Z88.2 Allergy status to sulfonamides

== ENCOUNTER 2021-05-23 19:25 | Emergency (ER) | payer OTHER ==
[~2021-05-23] VITALS: Ht 170.1 cm; Wt 127.0 kg
[~2021-05-23 19:25] MED LIST changes: +PANTOPRAZOLE SO40 MG PO; +SYMB160 INH
[2021-05-23 21:18] VITALS: BP 146/87
== END 2021-05-24 00:18 | disposition left against medical advice (07) ==
LOC: ED 19:25
DX: R06.02 Shortness of breath (principal); R42 Dizziness and giddiness; R05 Cough; Z53.21 Procedure and treatment not carried out due to patient leaving prior to being seen by health care provider

== ENCOUNTER 2021-05-24 11:56 | Emergency (ER) | payer OTHER ==
[2021-05-24 12:12] VITALS: BP 126/78
[2021-05-24 13:04] LABS: BASO % 0.3 % (0.0-1.0); EOS # 0.1 10*3/uL (0.0-0.4); EOS % 1.7 % (1.0-4.0); HEMATOCRIT 43.6 % (37.0-47.0); LYMPH # 1.4 10*3/uL (1.3-4.4); LYMPH % 39.5 % (27.0-41.0); MEAN CELL VOLUME 84.5 fl (81.0-99.0); MEAN CORPUSCULAR HGB 26.4 pg (27.0-31.0); MEAN CORPUSCULAR HGB CONC 31.2 g/dl (33.0-37.0); MEAN PLATELET VOLUME 9.6 fl (9.6-12.3); MONO # 0.4 10*3/uL (0.1-1.0); MONO % 11.6 % (3.0-9.0); NEUT # 1.7 10*3/uL (2.3-7.9); NEUT % 46.3 % (47.0-73.0); PLATELET COUNT AUTOMATED 259 10*3/uL (130-400); RED BLOOD COUNT 5.16 10*6/uL (4.10-5.10); RED CELL DISTRI WIDTH 15.2 % (0-14.5); WHITE BLOOD COUNT 3.6 10*3/uL (4.8-10.8)
[2021-05-24 13:19] LABS: ALBUMIN 3.9 gm/dl (3.1-4.5); ALKALINE PHOSPHATASE 95 U/L (45-117); BUN 14 mg/dl (7-24); CHLORIDE 106 mmol/L (98-107); LIPASE 176 U/L (73-393); POTASSIUM 3.5 mmol/L (3.5-5.1); SGOT/AST 29 IU/L (3-35); SGPT/ALT 26 U/L (12-78); SODIUM 139 mmol/L (136-145)
[2021-05-24 13:22] LABS: TROPONIN I < 0.015 ng/ml (<0.045)
== END 2021-05-24 23:52 | disposition home or self-care (01) ==
LOC: ED 11:56
PROVIDERS: Nurse Practitioner Family
DX: U07.1 COVID-19 (principal); K21.9 Gastro-esophageal reflux disease without esophagitis; I10 Essential (primary) hypertension; I48.91 Unspecified atrial fibrillation; J44.9 Chronic obstructive pulmonary disease, unspecified; Z87.891 Personal history of nicotine dependence; Z98.890 Other specified postprocedural states; Z79.899 Other long term (current) drug therapy; Z91.040 Latex allergy status; Z88.5 Allergy status to narcotic agent; Z88.6 Allergy status to analgesic agent

== ENCOUNTER 2021-09-17 07:21 | Emergency (ER) | payer OTHER ==
[~2021-09-17] VITALS: Ht 170.1 cm; Wt 127.0 kg
[2021-09-17 07:39] VITALS: BP 146/94
== END 2021-09-17 09:41 | disposition home or self-care (01) ==
LOC: ED 07:21
DX: S01.81XA Laceration without foreign body of other part of head, initial encounter (principal); E04.9 Nontoxic goiter, unspecified; Z88.6 Allergy status to analgesic agent; Z88.8 Allergy status to other drugs, medicaments and biological substances; Z91.040 Latex allergy status; Z79.899 Other long term (current) drug therapy; Z87.891 Personal history of nicotine dependence; W01.0XXA Fall on same level from slipping, tripping and stumbling without subsequent striking against object, initial encounter; Y93.89 Activity, other specified; Y92.89 Other specified places as the place of occurrence of the external cause; Y99.8 Other external cause status

== ENCOUNTER → 2021-10-16 | Outpatient (CLI) | payer OTHER | END | disposition home or self-care (01) | LOC: US 09-25 16:00 | PROVIDERS: ATTEND Family Medicine | DX: E04.2 Nontoxic multinodular goiter (principal) ==

== ENCOUNTER → 2021-10-20 | Outpatient (CLI) | payer OTHER | END | disposition home or self-care (01) | LOC: COVID19 15:51 | PROVIDERS: ATTEND Family Medicine | DX: Z20.822 Contact with and (suspected) exposure to COVID-19 (principal) ==

== ENCOUNTER 2021-10-28 14:50 | Emergency (ER) | payer OTHER ==
[2021-10-28 14:57] VITALS: BP 144/65
[2021-10-28] MEDS ORDERED: AUGMENTIN 875-875 MG PO (17:07)
== END 2021-10-28 17:11 | disposition home or self-care (01) ==
LOC: ED 14:50
DX: J32.9 Chronic sinusitis, unspecified (principal); Z88.8 Allergy status to other drugs, medicaments and biological substances; Z91.040 Latex allergy status; Z79.899 Other long term (current) drug therapy; Z90.89 Acquired absence of other organs; Z98.890 Other specified postprocedural states; Z87.891 Personal history of nicotine dependence

== ENCOUNTER → 2021-12-10 | Outpatient (CLI) | payer OTHER ==
[~2021-12-10] MED LIST changes: +AUGMENTIN 875-875 MG PO
== END | disposition home or self-care (01) ==
LOC: EDSTATUS 13:00 → SDC 13:00
PROVIDERS: ATTEND Family Medicine
DX: E04.1 Nontoxic single thyroid nodule (principal)

== ENCOUNTER → 2021-12-26 | Outpatient (CLI) | payer OTHER ==
[2021-12-26 16:03] LABS: BASO % 0.3 % (0.0-1.0); EOS # 0.2 10*3/uL (0.0-0.4); HEMATOCRIT 39.3 % (37.0-47.0); LYMPH # 2.4 10*3/uL (1.3-4.4); LYMPH % 22.5 % (27.0-41.0); MEAN CORPUSCULAR HGB 27.1 pg (27.0-31.0); MEAN CORPUSCULAR HGB CONC 32.3 g/dl (33.0-37.0); MEAN PLATELET VOLUME 8.9 fl (9.6-12.3); MONO # 0.7 10*3/uL (0.1-1.0); MONO % 6.2 % (3.0-9.0); NEUT # 7.2 10*3/uL (2.3-7.9); NEUT % 68.2 % (47.0-73.0); PLATELET COUNT AUTOMATED 315 10*3/uL (130-400); RED BLOOD COUNT 4.68 10*6/uL (4.10-5.10); RED CELL DISTRI WIDTH 17.1 % (0-14.5); WHITE BLOOD COUNT 10.6 10*3/uL (4.8-10.8)
[2021-12-26 16:22] LABS: BUN 14 mg/dl (7-24); CHLORIDE 107 mmol/L (98-107); CHOLESTEROL 224 mg/dL (<200); POTASSIUM 3.9 mmol/L (3.5-5.1); SGOT/AST 20 IU/L (3-35); SGPT/ALT 28 U/L (12-78); SODIUM 143 mmol/L (136-145); TOTAL PROTEIN 7.5 gm/dL (6.4-8.2); TRIGLYCERIDES 192 mg/dl (<150)
[2021-12-26 16:26] LABS: ALKALINE PHOSPHATASE 83 U/L (45-117); LDL CHOLESTEROL 137 mg/dL (9-159); THYROID STIM HORMONE (HS) 0.484 uIU/ml (0.358-4.75); THYROXINE (T4) TOTAL 7.7 ug/dl (4.8-13.9)
== END | disposition home or self-care (01) ==
LOC: LAB 15:47
PROVIDERS: ATTEND Family Medicine
DX: E55.9 Vitamin D deficiency, unspecified (principal); E03.9 Hypothyroidism, unspecified; R53.83 Other fatigue

== ENCOUNTER 2022-03-10 15:37 | Emergency (ER) | payer OTHER ==
[~2022-03-10] VITALS: Ht 170.1 cm; Wt 127.0 kg
[2022-03-10 15:55] VITALS: BP 154/89
[2022-03-10 17:03] LABS: BILIRUBIN Negative (Negative); BLOOD Negative (Negative); CLARITY Cloudy (Clear); COLOR Yellow (Yellow); GLUCOSE Negative (Negative); KETONE Trace (Negative); LEUKO ESTERASE Trace (Negative); NITRITE Negative (Negative); PH 5.5 (4.5-8.0); SPECIFIC GRAVITY 1.025 (1.001-1.030)
[2022-03-10 17:18] LABS: BACTERIA 4+
[2022-03-10 17:19] LABS: EPITHELIAL CELLS TNTC; HYALINE CAST 0-2
== END 2022-03-10 20:31 | disposition home or self-care (01) ==
LOC: ED 15:37
PROVIDERS: Physician Assistant
DX: B34.9 Viral infection, unspecified (principal); Z20.822 Contact with and (suspected) exposure to COVID-19; Z88.8 Allergy status to other drugs, medicaments and biological substances; Z91.040 Latex allergy status; Z79.899 Other long term (current) drug therapy; Z90.89 Acquired absence of other organs; Z98.890 Other specified postprocedural states; Z87.891 Personal history of nicotine dependence

== ENCOUNTER → 2022-04-16 | Outpatient (CLI) | payer OTHER ==
[~2022-04-16] MED LIST changes: +CEFDINIR300 MG PO; +HYDROCODONE-AC1 EAC1 PO; +OFLOXACIN OTIC5 ML OT
[2022-04-16 15:59] LABS: BASO % 0.4 % (0.0-1.0); EOS # 0.3 10*3/uL (0.0-0.4); EOS % 2.9 % (1.0-4.0); HEMATOCRIT 42.3 % (37.0-47.0); LYMPH # 2.2 10*3/uL (1.3-4.4); LYMPH % 21.5 % (27.0-41.0); MEAN CELL VOLUME 85.5 fl (81.0-99.0); MEAN CORPUSCULAR HGB 26.7 pg (27.0-31.0); MEAN CORPUSCULAR HGB CONC 31.2 g/dl (33.0-37.0); MEAN PLATELET VOLUME 9.1 fl (9.6-12.3); MONO # 0.7 10*3/uL (0.1-1.0); MONO % 6.5 % (3.0-9.0); NEUT % 67.8 % (47.0-73.0); PLATELET COUNT AUTOMATED 352 10*3/uL (130-400); RED BLOOD COUNT 4.95 10*6/uL (4.10-5.10); RED CELL DISTRI WIDTH 15.4 % (0-14.5); WHITE BLOOD COUNT 10.3 10*3/uL (4.8-10.8)
== END | disposition home or self-care (01) ==
LOC: LAB 15:32
PROVIDERS: ATTEND Family Medicine
DX: N93.8 Other specified abnormal uterine and vaginal bleeding (principal); D64.9 Anemia, unspecified

== ENCOUNTER → 2022-04-21 | Outpatient (CLI) | payer OTHER ==
[2022-04-22 11:07] LABS: FOLLICLE STIMULATING HORMONE 17.7 mIU/mL (.)
== END | disposition home or self-care (01) ==
LOC: LAB 16:27
PROVIDERS: Student in an Organized Health Care Education/Training Program; ATTEND Family Medicine
DX: N93.9 Abnormal uterine and vaginal bleeding, unspecified (principal)

== ENCOUNTER 2022-04-27 03:31 | Emergency (ER) | payer OTHER ==
[~2022-04-27] VITALS: Ht 170.1 cm; Wt 136.1 kg
[~2022-04-27 03:31] MED LIST changes: -CEFDINIR300 MG PO; -HYDROCODONE-AC1 EAC1 PO; -OFLOXACIN OTIC5 ML OT
[2022-04-27 03:40] VITALS: BP 176/76
[2022-04-27] MEDS ORDERED: OFLOXACIN OTIC5 ML OT (05:08)
[2022-04-27] MEDS ORDERED: HYDROCODONE-AC1 EAC1 PO (05:12)
[2022-04-28] MEDS ORDERED: CEFDINIR300 MG PO (19:57)
[2022-04-28] MEDS ORDERED: HYDROCODONE-AC1 EAC1 PO (19:57)
== END 2022-04-27 05:31 | disposition home or self-care (01) ==
LOC: ED 03:31
DX: H72.92 Unspecified perforation of tympanic membrane, left ear (principal); I10 Essential (primary) hypertension; E66.01 Morbid (severe) obesity due to excess calories; Z91.040 Latex allergy status; Z88.8 Allergy status to other drugs, medicaments and biological substances; Z79.899 Other long term (current) drug therapy; Z90.89 Acquired absence of other organs; Z98.890 Other specified postprocedural states; Z87.891 Personal history of nicotine dependence

== ENCOUNTER 2022-04-28 18:03 | Emergency (ER) | payer OTHER ==
[~2022-04-28] VITALS: Ht 170.1 cm; Wt 136.1 kg
[~2022-04-28 18:03] MED LIST changes: +HYDROCODONE-AC1 EAC1 PO; +OFLOXACIN OTIC5 ML OT
[2022-04-28] MEDS ORDERED: HYDROCODONE-AC1 EAC1 PO (19:57)
[2022-04-28] MEDS ORDERED: CEFDINIR300 MG PO (19:57)
[2022-04-28 20:05] VITALS: BP 147/87
== END 2022-04-28 20:33 | disposition home or self-care (01) ==
LOC: ED 18:03
DX: H66.012 Acute suppurative otitis media with spontaneous rupture of ear drum, left ear (principal); Z87.891 Personal history of nicotine dependence; Z79.899 Other long term (current) drug therapy; Z91.040 Latex allergy status; Z88.5 Allergy status to narcotic agent

== ENCOUNTER → 2022-05-01 | Outpatient (CLI) | payer OTHER ==
[~2022-05-01] MED LIST changes: +CEFDINIR300 MG PO
[2022-05-01 12:54] LABS: BASO % 0.4 % (0.0-1.0); EOS # 0.3 10*3/uL (0.0-0.4); EOS % 2.9 % (1.0-4.0); HEMATOCRIT 39.5 % (37.0-47.0); LYMPH # 2.7 10*3/uL (1.3-4.4); LYMPH % 27.3 % (27.0-41.0); MEAN CELL VOLUME 84.2 fl (81.0-99.0); MEAN CORPUSCULAR HGB 26.2 pg (27.0-31.0); MEAN CORPUSCULAR HGB CONC 31.1 g/dl (33.0-37.0); MEAN PLATELET VOLUME 9.2 fl (9.6-12.3); MONO # 0.7 10*3/uL (0.1-1.0); MONO % 6.9 % (3.0-9.0); NEUT # 6.1 10*3/uL (2.3-7.9); NEUT % 61.5 % (47.0-73.0); PLATELET COUNT AUTOMATED 337 10*3/uL (130-400); RED BLOOD COUNT 4.69 10*6/uL (4.10-5.10); RED CELL DISTRI WIDTH 15.3 % (0-14.5); WHITE BLOOD COUNT 9.9 10*3/uL (4.8-10.8)
[2022-05-01 13:17] LABS: BUN 13 mg/dl (7-24); CHLORIDE 107 mmol/L (98-107); CREATININE 0.89 mg/dL (0.55-1.02); POTASSIUM 3.7 mmol/L (3.5-5.1); SGOT/AST 18 IU/L (3-35); SGPT/ALT 24 U/L (12-78); SODIUM 141 mmol/L (136-145); TOTAL PROTEIN 7.4 gm/dL (6.4-8.2)
[2022-05-01 13:18] LABS: ALKALINE PHOSPHATASE 95 U/L (45-117)
== END | disposition home or self-care (01) ==
LOC: LAB 12:27
PROVIDERS: ATTEND Family Medicine
DX: Z01.812 Encounter for preprocedural laboratory examination (principal); E04.9 Nontoxic goiter, unspecified

== ENCOUNTER 2022-07-01 15:29 | Emergency (ER) | payer OTHER ==
[~2022-07-01] VITALS: Ht 172.7 cm; Wt 136.1 kg
[2022-07-01 15:43] VITALS: BP 140/75
[2022-07-01 16:24] LABS: BASO # 0.1 10*3/uL (0.0-0.1); BASO % 0.6 % (0.0-1.0); EOS # 0.3 10*3/uL (0.0-0.4); EOS % 2.9 % (1.0-4.0); HEMATOCRIT 40.8 % (37.0-47.0); LYMPH # 2.2 10*3/uL (1.3-4.4); LYMPH % 22.6 % (27.0-41.0); MEAN CELL VOLUME 83.8 fl (81.0-99.0); MEAN CORPUSCULAR HGB 26.9 pg (27.0-31.0); MEAN CORPUSCULAR HGB CONC 32.1 g/dl (33.0-37.0); MEAN PLATELET VOLUME 8.9 fl (9.6-12.3); MONO # 0.5 10*3/uL (0.1-1.0); MONO % 5.6 % (3.0-9.0); NEUT # 6.5 10*3/uL (2.3-7.9); NEUT % 67.4 % (47.0-73.0); PLATELET COUNT AUTOMATED 379 10*3/uL (130-400); RED BLOOD COUNT 4.87 10*6/uL (4.10-5.10); RED CELL DISTRI WIDTH 16.1 % (0-14.5); WHITE BLOOD COUNT 9.6 10*3/uL (4.8-10.8)
[2022-07-01 16:36] LABS: INTERNATIONAL NORM RATIO 0.9 (2.0-3.5)
[2022-07-01 16:39] LABS: ALKALINE PHOSPHATASE 107 U/L (45-117); BUN 10 mg/dl (7-24); CHLORIDE 110 mmol/L (98-107); CREATININE 0.86 mg/dL (0.55-1.02); POTASSIUM 3.8 mmol/L (3.5-5.1); SGOT/AST 25 IU/L (3-35); SGPT/ALT 35 U/L (12-78); SODIUM 141 mmol/L (136-145)
== END 2022-07-01 17:45 | disposition home or self-care (01) ==
LOC: ED 15:29
PROVIDERS: Physician Assistant
DX: N93.8 Other specified abnormal uterine and vaginal bleeding (principal); R42 Dizziness and giddiness; R51.9 Headache, unspecified; Z91.041 Radiographic dye allergy status; Z91.048 Other nonmedicinal substance allergy status; Z91.040 Latex allergy status; Z88.6 Allergy status to analgesic agent; Z79.899 Other long term (current) drug therapy; Z98.890 Other specified postprocedural states; Z90.89 Acquired absence of other organs; Z87.891 Personal history of nicotine dependence

== ENCOUNTER → 2022-08-14 | Outpatient (CLI) | payer OTHER ==
[2022-08-14 15:10] LABS: BASO # 0.1 10*3/uL (0.0-0.1); BASO % 0.4 % (0.0-1.0); EOS # 0.3 10*3/uL (0.0-0.4); EOS % 2.4 % (1.0-4.0); HEMATOCRIT 38.8 % (37.0-47.0); LYMPH # 3.4 10*3/uL (1.3-4.4); LYMPH % 28.5 % (27.0-41.0); MEAN CELL VOLUME 85.5 fl (81.0-99.0); MEAN CORPUSCULAR HGB 27.1 pg (27.0-31.0); MEAN CORPUSCULAR HGB CONC 31.7 g/dl (33.0-37.0); MEAN PLATELET VOLUME 9.9 fl (9.6-12.3); MONO # 0.7 10*3/uL (0.1-1.0); MONO % 5.8 % (3.0-9.0); NEUT # 7.4 10*3/uL (2.3-7.9); NEUT % 62.4 % (47.0-73.0); PLATELET COUNT AUTOMATED 374 10*3/uL (130-400); RED BLOOD COUNT 4.54 10*6/uL (4.10-5.10); RED CELL DISTRI WIDTH 15.2 % (0-14.5); WHITE BLOOD COUNT 11.8 10*3/uL (4.8-10.8)
== END | disposition home or self-care (01) ==
LOC: LAB 08-13 15:48
PROVIDERS: ATTEND Family Medicine
DX: R42 Dizziness and giddiness (principal)

== ENCOUNTER → 2022-10-09 | Outpatient (CLI) | payer OTHER ==
[2022-10-09 16:00] LABS: THYROID STIM HORMONE (HS) 1.435 uIU/ml (0.550-4.780); THYROXINE (T4) TOTAL 8.4 ug/dl (4.5-10.9)
[2022-10-10 08:08] LABS: THYROID PEROXIDASE (TPO) AB 11 IU/mL (0-34)
[2022-10-12 15:06] LABS: THYROGLOBULIN ANTIBODY <1.0 IU/mL (0.0-0.9)
== END | disposition home or self-care (01) ==
LOC: LAB 14:46
PROVIDERS: ATTEND Family Medicine
DX: E89.0 Postprocedural hypothyroidism (principal)

== ENCOUNTER 2022-10-29 19:47 | Emergency (ER) | payer OTHER ==
[~2022-10-29] VITALS: Ht 170.1 cm; Wt 133.4 kg
[2022-10-29 20:27] VITALS: BP 118/95
[2022-10-29 21:16] LABS: BASO % 0.3 % (0.0-1.0); EOS # 0.3 10*3/uL (0.0-0.4); EOS % 2.5 % (1.0-4.0); HEMATOCRIT 38.4 % (37.0-47.0); LYMPH # 2.9 10*3/uL (1.3-4.4); MEAN CORPUSCULAR HGB 25.7 pg (27.0-31.0); MEAN CORPUSCULAR HGB CONC 31.8 g/dl (33.0-37.0); MEAN PLATELET VOLUME 9.1 fl (9.6-12.3); MONO # 0.6 10*3/uL (0.1-1.0); MONO % 4.9 % (3.0-9.0); NEUT # 7.4 10*3/uL (2.3-7.9); NEUT % 65.9 % (47.0-73.0); PLATELET COUNT AUTOMATED 298 10*3/uL (130-400); RED BLOOD COUNT 4.74 10*6/uL (4.10-5.10); RED CELL DISTRI WIDTH 15.6 % (0-14.5); WHITE BLOOD COUNT 11.3 10*3/uL (4.8-10.8)
[2022-10-29 21:30] LABS: ALKALINE PHOSPHATASE 101 U/L (46-116); BUN 15 mg/dl (9-23); CHLORIDE 106 mmol/L (98-107); POTASSIUM 3.6 mmol/L (3.4-5.1); SGPT/ALT 15 U/L (10-49); TOTAL PROTEIN 7.1 gm/dL (6.0-8.0)
[2022-10-29] MEDS ORDERED: BENZONATATE150 MG PO (22:48)
[2022-10-29] MEDS ORDERED: MEDROL DOSEPAK4 MG PO (22:48)
== END 2022-10-29 23:01 | disposition home or self-care (01) ==
LOC: ED 19:47
PROVIDERS: Nurse Practitioner Family
DX: J06.9 Acute upper respiratory infection, unspecified (principal); I10 Essential (primary) hypertension; F41.9 Anxiety disorder, unspecified; F32.A Depression, unspecified; I48.91 Unspecified atrial fibrillation; K21.9 Gastro-esophageal reflux disease without esophagitis; Z91.040 Latex allergy status; Z88.8 Allergy status to other drugs, medicaments and biological substances; Z98.890 Other specified postprocedural states; Z90.89 Acquired absence of other organs; Z91.041 Radiographic dye allergy status

== ENCOUNTER 2022-11-02 14:36 | Emergency (ER) | payer OTHER ==
[~2022-11-02] VITALS: Wt 133.4 kg
[~2022-11-02 14:36] MED LIST changes: +BENZONATATE150 MG PO
[2022-11-02 14:45] VITALS: BP 166/92
[2022-11-02 16:24] LABS: BASO % 0.2 % (0.0-1.0); EOS # 0.2 10*3/uL (0.0-0.4); EOS % 1.1 % (1.0-4.0); HEMATOCRIT 38.1 % (37.0-47.0); LYMPH # 3.3 10*3/uL (1.3-4.4); MEAN CELL VOLUME 82.5 fl (81.0-99.0); MEAN CORPUSCULAR HGB 25.3 pg (27.0-31.0); MEAN CORPUSCULAR HGB CONC 30.7 g/dl (33.0-37.0); MEAN PLATELET VOLUME 9.4 fl (9.6-12.3); MONO # 0.9 10*3/uL (0.1-1.0); MONO % 6.2 % (3.0-9.0); NEUT # 9.3 10*3/uL (2.3-7.9); NEUT % 67.6 % (47.0-73.0); PLATELET COUNT AUTOMATED 292 10*3/uL (130-400); RED BLOOD COUNT 4.62 10*6/uL (4.10-5.10); RED CELL DISTRI WIDTH 16.1 % (0-14.5); WHITE BLOOD COUNT 13.7 10*3/uL (4.8-10.8)
[2022-11-02 16:38] LABS: ALKALINE PHOSPHATASE 94 U/L (46-116); BUN 18 mg/dl (9-23); CHLORIDE 105 mmol/L (98-107); POTASSIUM 3.5 mmol/L (3.4-5.1); SGPT/ALT 20 U/L (10-49); TOTAL PROTEIN 6.8 gm/dL (6.0-8.0)
[2022-11-02] MEDS ORDERED: NEBULIZER1 EACH MC (17:52)
[2022-11-02] MEDS ORDERED: PREDNISONE20 M1 PO (17:52)
[2022-11-02] MEDS ORDERED: ALBUTEROL2.5 MG/0.5 INH (17:52)
[2022-11-02] MEDS ORDERED: AMOX-CLAV 875-1 EACH PO (17:52)
== END 2022-11-02 18:00 | disposition home or self-care (01) ==
LOC: ED 14:36
PROVIDERS: Nurse Practitioner Family
DX: J06.9 Acute upper respiratory infection, unspecified (principal); K21.9 Gastro-esophageal reflux disease without esophagitis; I10 Essential (primary) hypertension; F41.9 Anxiety disorder, unspecified; F32.A Depression, unspecified; J44.9 Chronic obstructive pulmonary disease, unspecified; I48.91 Unspecified atrial fibrillation; Z91.041 Radiographic dye allergy status; Z88.5 Allergy status to narcotic agent; Z88.8 Allergy status to other drugs, medicaments and biological substances; Z98.890 Other specified postprocedural states; Z90.89 Acquired absence of other organs; Z87.891 Personal history of nicotine dependence

== ENCOUNTER → 2023-02-18 | Outpatient (CLI) | payer OTHER ==
[~2023-02-18] MED LIST changes: +ALBUTEROL2.5 MG/0.5 INH; +AMOX-CLAV 875-1 EACH PO; +NEBULIZER1 EACH MC
[2023-02-18 17:21] LABS: BASO % 0.3 % (0.0-1.0); EOS # 0.2 10*3/uL (0.0-0.4); EOS % 1.9 % (1.0-4.0); HEMATOCRIT 40.2 % (37.0-47.0); LYMPH # 2.7 10*3/uL (1.3-4.4); LYMPH % 23.4 % (27.0-41.0); MEAN CELL VOLUME 82.9 fl (81.0-99.0); MEAN CORPUSCULAR HGB 26.6 pg (27.0-31.0); MEAN CORPUSCULAR HGB CONC 32.1 g/dl (33.0-37.0); MEAN PLATELET VOLUME 9.2 fl (9.6-12.3); MONO # 0.6 10*3/uL (0.1-1.0); NEUT # 7.9 10*3/uL (2.3-7.9); PLATELET COUNT AUTOMATED 326 10*3/uL (130-400); RED BLOOD COUNT 4.85 10*6/uL (4.10-5.10); RED CELL DISTRI WIDTH 15.1 % (0-14.5); WHITE BLOOD COUNT 11.4 10*3/uL (4.8-10.8)
[2023-02-18 17:50] LABS: ALKALINE PHOSPHATASE 97 U/L (46-116); BUN 14 mg/dl (9-23); CHLORIDE 106 mmol/L (98-107); POTASSIUM 3.7 mmol/L (3.4-5.1); SGPT/ALT 11 U/L (10-49); THYROID STIM HORMONE (HS) 1.009 uIU/ml (0.550-4.780); THYROXINE (T4) TOTAL 8.1 ug/dl (4.5-10.9); TOTAL PROTEIN 7.5 gm/dL (6.0-8.0); VITAMIN D, 25-HYDROXY 58.4 ng/mL (30-100)
== END | disposition home or self-care (01) ==
LOC: LAB 16:56
PROVIDERS: ATTEND Family Medicine
DX: I10 Essential (primary) hypertension (principal); R53.83 Other fatigue; R11.2 Nausea with vomiting, unspecified; M43.22 Fusion of spine, cervical region

== ENCOUNTER 2023-04-26 14:54 | Emergency (ER) | payer OTHER ==
[~2023-04-26 14:54] MED LIST changes: +ASPIRIN ADULT L81 M2 PO; +LIPITOR20 MG PO; +METFORMIN HYDR500 MG PO
[2023-04-26 15:33] VITALS: BP 141/88
[2023-04-26] MEDS ORDERED: TRAMADOL HCL50 MG PO (18:24)
[2023-04-26] MEDS ORDERED: CYCLOBENZAPRINE10 MG PO (18:24)
== END 2023-04-26 15:40 | disposition home or self-care (01) ==
LOC: ED 14:54
DX: M19.09 Primary osteoarthritis, other specified site (principal); M25.512 Pain in left shoulder; K21.9 Gastro-esophageal reflux disease without esophagitis; I10 Essential (primary) hypertension; F41.9 Anxiety disorder, unspecified; F32.A Depression, unspecified; J44.9 Chronic obstructive pulmonary disease, unspecified; I48.91 Unspecified atrial fibrillation; Z88.5 Allergy status to narcotic agent; Z91.040 Latex allergy status; Z88.8 Allergy status to other drugs, medicaments and biological substances; Z90.89 Acquired absence of other organs; Z98.890 Other specified postprocedural states; Z87.891 Personal history of nicotine dependence

== ENCOUNTER 2023-05-05 05:30 | Emergency (ER) | payer OTHER ==
[~2023-05-05] VITALS: Ht 180.3 cm; Wt 129.3 kg
[~2023-05-05 05:30] MED LIST changes: +TRAMADOL HCL50 MG PO
[2023-05-05 05:43] VITALS: BP 140/85
[2023-05-05] MEDS ORDERED: PREDNISONE20 M1 PO (05:56)
== END 2023-05-05 06:13 | disposition home or self-care (01) ==
LOC: ED 05:30
DX: M25.512 Pain in left shoulder (principal); Z88.5 Allergy status to narcotic agent; Z91.040 Latex allergy status; Z91.041 Radiographic dye allergy status; Z88.8 Allergy status to other drugs, medicaments and biological substances; Z88.2 Allergy status to sulfonamides; Z90.89 Acquired absence of other organs; Z98.890 Other specified postprocedural states; Z95.5 Presence of coronary angioplasty implant and graft; Z87.891 Personal history of nicotine dependence

== ENCOUNTER → 2023-06-24 | Outpatient (CLI) | payer OTHER | END | disposition home or self-care (01) | LOC: RESCLI 00:40 | PROVIDERS: ATTEND Student in an Organized Health Care Education/Training Program | DX: E11.9 Type 2 diabetes mellitus without complications (principal) ==

== ENCOUNTER → 2023-08-11 | Outpatient (CLI) | payer OTHER | END | disposition home or self-care (01) | LOC: MAMMO 10:16 | PROVIDERS: ATTEND Family Medicine | DX: Z12.31 Encounter for screening mammogram for malignant neoplasm of breast (principal) ==

== ENCOUNTER → 2023-08-26 | Outpatient (CLI) | payer OTHER | END | disposition home or self-care (01) | LOC: RESCLI 01:29 | PROVIDERS: ATTEND Internal Medicine | DX: I10 Essential (primary) hypertension (principal); E11.9 Type 2 diabetes mellitus without complications; D51.9 Vitamin B12 deficiency anemia, unspecified; G47.33 Obstructive sleep apnea (adult) (pediatric); I49.9 Cardiac arrhythmia, unspecified; J30.2 Other seasonal allergic rhinitis; J44.9 Chronic obstructive pulmonary disease, unspecified; M25.561 Pain in right knee; F32.9 Major depressive disorder, single episode, unspecified; K21.9 Gastro-esophageal reflux disease without esophagitis; E53.9 Vitamin B deficiency, unspecified; L40.9 Psoriasis, unspecified; G62.9 Polyneuropathy, unspecified; Z79.899 Other long term (current) drug therapy ==

== ENCOUNTER → 2023-10-05 | Outpatient (CLI) | payer OTHER | END | disposition home or self-care (01) | LOC: LAB 15:35 | PROVIDERS: ATTEND Internal Medicine | DX: E11.9 Type 2 diabetes mellitus without complications (principal); D51.9 Vitamin B12 deficiency anemia, unspecified ==

== ENCOUNTER → 2023-11-25 | Outpatient (CLI) | payer OTHER | END | disposition home or self-care (01) | LOC: RESCLI 01:34 | PROVIDERS: ATTEND Internal Medicine | DX: E11.40 Type 2 diabetes mellitus with diabetic neuropathy, unspecified (principal); H93.19 Tinnitus, unspecified ear; F32.9 Major depressive disorder, single episode, unspecified; M25.561 Pain in right knee; E53.8 Deficiency of other specified B group vitamins; R53.83 Other fatigue; F41.1 Generalized anxiety disorder; J44.9 Chronic obstructive pulmonary disease, unspecified; I48.0 Paroxysmal atrial fibrillation; Z91.040 Latex allergy status; Z88.8 Allergy status to other drugs, medicaments and biological substances; Z98.890 Other specified postprocedural states; Z79.899 Other long term (current) drug therapy ==

== ENCOUNTER → 2023-11-30 | Outpatient (CLI) | payer OTHER ==
[2023-11-30 17:41] LABS: FREE T4 0.89 ng/dl (0.89-1.76)
== END | disposition home or self-care (01) ==
LOC: LAB 17:00
PROVIDERS: ATTEND Student in an Organized Health Care Education/Training Program
DX: M25.561 Pain in right knee (principal); M17.11 Unilateral primary osteoarthritis, right knee; M25.851 Other specified joint disorders, right hip; M25.761 Osteophyte, right knee; R53.83 Other fatigue

== ENCOUNTER → 2024-02-10 | Outpatient (CLI) | payer OTHER ==
[2024-02-10 12:35] LABS: BASO % 0.4 % (0.0-1.0); EOS # 0.3 10*3/uL (0.0-0.4); EOS % 3.2 % (1.0-4.0); LYMPH # 2.3 10*3/uL (1.3-4.4); LYMPH % 27.8 % (27.0-41.0); MEAN CELL VOLUME 88.1 fl (81.0-99.0); MEAN CORPUSCULAR HGB 28.6 pg (27.0-31.0); MEAN CORPUSCULAR HGB CONC 32.5 g/dl (33.0-37.0); MEAN PLATELET VOLUME 9.1 fl (9.6-12.3); MONO # 0.6 10*3/uL (0.1-1.0); MONO % 6.5 % (3.0-9.0); NEUT # 5.2 10*3/uL (2.3-7.9); NEUT % 61.5 % (47.0-73.0); PLATELET COUNT AUTOMATED 279 10*3/uL (130-400); RED BLOOD COUNT 4.54 10*6/uL (4.10-5.10); RED CELL DISTRI WIDTH 14.9 % (0-14.5); WHITE BLOOD COUNT 8.4 10*3/uL (4.8-10.8)
[2024-02-10 12:58] LABS: ALKALINE PHOSPHATASE 92 U/L (46-116); BUN 11 mg/dl (9-23); CHLORIDE 104 mmol/L (98-107); CHOLESTEROL 221 mg/dL (<200); LDL CHOLESTEROL 139 mg/dL (9-159); POTASSIUM 4.2 mmol/L (3.4-5.1); SGPT/ALT 16 U/L (5-49); TOTAL PROTEIN 7.1 gm/dL (6.0-8.0); TRIGLYCERIDES 135 mg/dl (<150)
[2024-02-10 13:09] LABS: VITAMIN D, 25-HYDROXY 38.6 ng/mL (30-100)
== END | disposition home or self-care (01) ==
LOC: RESCLI 02:36
PROVIDERS: Student in an Organized Health Care Education/Training Program; ATTEND Student in an Organized Health Care Education/Training Program
DX: K21.9 Gastro-esophageal reflux disease without esophagitis (principal); Z00.00 Encounter for general adult medical examination without abnormal findings; J44.9 Chronic obstructive pulmonary disease, unspecified; J45.909 Unspecified asthma, uncomplicated; I48.0 Paroxysmal atrial fibrillation; F32.9 Major depressive disorder, single episode, unspecified; M25.561 Pain in right knee; G62.9 Polyneuropathy, unspecified; F41.1 Generalized anxiety disorder; G47.00 Insomnia, unspecified; Z82.49 Family history of ischemic heart disease and other diseases of the circulatory system; Z79.899 Other long term (current) drug therapy; Z88.8 Allergy status to other drugs, medicaments and biological substances

== ENCOUNTER 2024-02-28 14:50 | Emergency (ER) | payer OTHER ==
[~2024-02-28] VITALS: Ht 170.1 cm; Wt 127.0 kg
[2024-02-28] MEDS ORDERED: Ketorolac Tromethamine 30 MG/ML VIAL IM ONE (15:30)
[2024-02-28] MEDS ORDERED: DULOXETINE HCL60 MG PO (16:33)
[2024-02-28] MEDS ORDERED: DULOXETINE HCL30 MG PO (16:33)
[2024-02-28] MEDS ORDERED: BUSPAR5 MG PO (16:34)
[2024-02-28] MEDS ORDERED: FAMOTIDINE20 M1 PO (16:35)
[2024-02-28 17:05] VITALS: BP 130/72
== END 2024-02-28 16:48 | disposition home or self-care (01) ==
LOC: ED 14:50
DX: S06.9XAA Unspecified intracranial injury with loss of consciousness status unknown, initial encounter (principal); K21.9 Gastro-esophageal reflux disease without esophagitis; I10 Essential (primary) hypertension; F41.9 Anxiety disorder, unspecified; F32.A Depression, unspecified; M19.90 Unspecified osteoarthritis, unspecified site; I48.91 Unspecified atrial fibrillation; J44.9 Chronic obstructive pulmonary disease, unspecified; Z88.5 Allergy status to narcotic agent; Z91.040 Latex allergy status; Z88.8 Allergy status to other drugs, medicaments and biological substances; Z98.890 Other specified postprocedural states; Z90.89 Acquired absence of other organs; Z95.5 Presence of coronary angioplasty implant and graft; Z87.891 Personal history of nicotine dependence; V49.59XA Passenger injured in collision with other motor vehicles in traffic accident, initial encounter; Y93.89 Activity, other specified; Y92.410 Unspecified street and highway as the place of occurrence of the external cause; Y99.8 Other external cause status

== ENCOUNTER 2024-03-17 14:56 | Emergency (ER) | payer OTHER ==
[~2024-03-17] VITALS: Ht 170.1 cm; Wt 128.8 kg
[~2024-03-17 14:56] MED LIST changes: +DULOXETINE HCL30 MG PO; +DULOXETINE HCL60 MG PO; +FAMOTIDINE20 M1 PO
[2024-03-17] MEDS ORDERED: AMITRIPTYLINE10 MG PO (15:38)
[2024-03-17] MEDS ORDERED: PREDNISONE50 MG PO (15:55)
[2024-03-17] MEDS ORDERED: methylPREDNISolone sod succ 125 MG VIAL IM ONE (15:55)
[2024-03-17] MEDS ORDERED: METHOCARBAMOL 500 MG TAB PO ONE (15:55)
[2024-03-17] MEDS ORDERED: METHOCARBAMOL500 M1 PO (15:55)
== END 2024-03-17 16:20 | disposition home or self-care (01) ==
LOC: ED 14:56
DX: M54.50 Low back pain, unspecified (principal); R51.9 Headache, unspecified; M79.604 Pain in right leg; M79.605 Pain in left leg; K21.9 Gastro-esophageal reflux disease without esophagitis; I10 Essential (primary) hypertension; F41.9 Anxiety disorder, unspecified; F32.A Depression, unspecified; M19.90 Unspecified osteoarthritis, unspecified site; I48.91 Unspecified atrial fibrillation; J44.9 Chronic obstructive pulmonary disease, unspecified; Z88.5 Allergy status to narcotic agent; Z91.040 Latex allergy status; Z91.041 Radiographic dye allergy status; Z88.8 Allergy status to other drugs, medicaments and biological substances; Z98.890 Other specified postprocedural states; Z90.89 Acquired absence of other organs; Z95.5 Presence of coronary angioplasty implant and graft; Z87.891 Personal history of nicotine dependence

== ENCOUNTER 2024-04-10 15:07 | Emergency (ER) | payer OTHER ==
[~2024-04-10] VITALS: Ht 170.1 cm; Wt 129.3 kg
[~2024-04-10 15:07] MED LIST changes: +AMITRIPTYLINE10 MG PO; +PREDNISONE50 MG PO
[2024-04-10 15:32] VITALS: BP 181/96
[2024-04-10 17:35] LABS: BASO # 0.1 10*3/uL (0.0-0.1); BASO % 0.5 % (0.0-1.0); EOS # 0.5 10*3/uL (0.0-0.4); EOS % 4.1 % (1.0-4.0); LYMPH # 2.8 10*3/uL (1.3-4.4); LYMPH % 25.8 % (27.0-41.0); MEAN CORPUSCULAR HGB 28.4 pg (27.0-31.0); MEAN CORPUSCULAR HGB CONC 31.9 g/dl (33.0-37.0); MONO # 0.7 10*3/uL (0.1-1.0); MONO % 6.6 % (3.0-9.0); NEUT # 6.8 10*3/uL (2.3-7.9); PLATELET COUNT AUTOMATED 319 10*3/uL (130-400); RED BLOOD COUNT 4.72 10*6/uL (4.10-5.10); RED CELL DISTRI WIDTH 15.3 % (0-14.5)
[2024-04-10 18:17] LABS: BUN 11 mg/dl (9-23); CHLORIDE 109 mmol/L (98-107); POTASSIUM 3.9 mmol/L (3.4-5.1)
[2024-04-10] MEDS ORDERED: SODIUM CHLORIDE 0.9% 1,000 ML IV ONE (18:35)
[2024-04-10] MEDS ORDERED: ZITHROMAX250 MG PO (20:03)
[2024-04-10] MEDS ORDERED: AZITHROMYCIN 250 MG TAB PO ONE (20:05)
[2024-04-10] MEDS ORDERED: methylPREDNISolone sod succ 125 MG VIAL IV ONE (20:05)
== END 2024-04-10 20:43 | disposition home or self-care (01) ==
LOC: ED 15:07
PROVIDERS: Nurse Practitioner Family
DX: J40 Bronchitis, not specified as acute or chronic (principal); Z20.822 Contact with and (suspected) exposure to COVID-19; K21.9 Gastro-esophageal reflux disease without esophagitis; I10 Essential (primary) hypertension; F41.9 Anxiety disorder, unspecified; F32.A Depression, unspecified; M19.90 Unspecified osteoarthritis, unspecified site; J44.9 Chronic obstructive pulmonary disease, unspecified; I48.91 Unspecified atrial fibrillation; Z88.5 Allergy status to narcotic agent; Z91.040 Latex allergy status; Z91.041 Radiographic dye allergy status; Z88.8 Allergy status to other drugs, medicaments and biological substances; Z98.890 Other specified postprocedural states; Z90.89 Acquired absence of other organs; Z95.5 Presence of coronary angioplasty implant and graft; Z87.891 Personal history of nicotine dependence

== ENCOUNTER 2024-05-22 16:24 | Emergency (ER) | payer OTHER ==
[~2024-05-22] VITALS: Ht 170.1 cm; Wt 136.1 kg
[~2024-05-22 16:24] MED LIST changes: +ZITHROMAX250 MG PO
[2024-05-22 16:40] VITALS: BP 125/93
[2024-05-22] MEDS ORDERED: IBUPROFEN 800 MG TAB PO ONE (16:55)
[2024-05-22] MEDS ORDERED: methylPREDNISolone sod succ 125 MG VIAL IM ONE (16:55)
[2024-05-22] MEDS ORDERED: DEXAMETHASONE6 MG PO (18:47)
== END 2024-05-22 18:55 | disposition home or self-care (01) ==
LOC: ED 16:24
DX: U07.1 COVID-19 (principal); K21.9 Gastro-esophageal reflux disease without esophagitis; I10 Essential (primary) hypertension; F41.9 Anxiety disorder, unspecified; F32.A Depression, unspecified; M19.90 Unspecified osteoarthritis, unspecified site; J44.9 Chronic obstructive pulmonary disease, unspecified; I48.91 Unspecified atrial fibrillation; Z88.5 Allergy status to narcotic agent; Z91.040 Latex allergy status; Z88.8 Allergy status to other drugs, medicaments and biological substances; Z90.89 Acquired absence of other organs; Z98.890 Other specified postprocedural states; Z95.5 Presence of coronary angioplasty implant and graft; Z87.891 Personal history of nicotine dependence

== ENCOUNTER 2024-07-20 15:11 | Emergency (ER) | payer SELFPAY ==
[~2024-07-20] VITALS: Ht 170.1 cm; Wt 134.3 kg
[~2024-07-20 15:11] MED LIST changes: +DEXAMETHASONE6 MG PO
[2024-07-20 15:37] VITALS: BP 153/60
[2024-07-20] MEDS ORDERED: Acetaminophen/Hydrocodone 5 MG/325 MG TABLET PO ONE ×2 (16:00→16:20)
[2024-07-20] MEDS ORDERED: Ketorolac Tromethamine 30 MG/ML VIAL IM ONE (16:00)
[2024-07-20] MEDS ORDERED: MELOXICAM15 MG PO (16:40)
[2024-07-20] MEDS ORDERED: CYCLOBENZAPRINE10 MG PO (16:40)
== END 2024-07-20 18:10 | disposition home or self-care (01) ==
LOC: ED 15:11
DX: M54.31 Sciatica, right side (principal); M25.551 Pain in right hip; M25.561 Pain in right knee; K21.9 Gastro-esophageal reflux disease without esophagitis; I10 Essential (primary) hypertension; F41.9 Anxiety disorder, unspecified; F32.A Depression, unspecified; M19.90 Unspecified osteoarthritis, unspecified site; I48.91 Unspecified atrial fibrillation; J44.9 Chronic obstructive pulmonary disease, unspecified; Z88.5 Allergy status to narcotic agent; Z91.040 Latex allergy status; Z91.041 Radiographic dye allergy status; Z88.8 Allergy status to other drugs, medicaments and biological substances; Z90.89 Acquired absence of other organs; Z98.890 Other specified postprocedural states; Z87.891 Personal history of nicotine dependence

== ENCOUNTER 2024-09-09 16:41 | Emergency (ER) | payer OTHER ==
[~2024-09-09] VITALS: Ht 170.2 cm; Wt 136.1 kg
[~2024-09-09 16:41] MED LIST changes: +MELOXICAM15 MG PO
[2024-09-09 16:50] VITALS: BP 151/74
[2024-09-09] MEDS ORDERED: MORPHINE Sulfate 2 MG/ML SYR IM ONE (17:05)
[2024-09-09] MEDS ORDERED: GABAPENTIN ER300 MG PO (17:05)
[2024-09-09] MEDS ORDERED: DIAZEPAM 5 MG TAB PO ONE (17:05)
[2024-09-09] MEDS ORDERED: METHOCARBAMOL750 M1 PO (17:05)
== END 2024-09-09 17:20 | disposition home or self-care (01) ==
LOC: ED 16:41
DX: M54.40 Lumbago with sciatica, unspecified side (principal); E11.9 Type 2 diabetes mellitus without complications; J45.909 Unspecified asthma, uncomplicated; I10 Essential (primary) hypertension; E78.5 Hyperlipidemia, unspecified; I48.91 Unspecified atrial fibrillation; K21.9 Gastro-esophageal reflux disease without esophagitis; F41.9 Anxiety disorder, unspecified; F32.A Depression, unspecified; M19.90 Unspecified osteoarthritis, unspecified site; Z88.5 Allergy status to narcotic agent; Z91.040 Latex allergy status; Z91.041 Radiographic dye allergy status; Z88.8 Allergy status to other drugs, medicaments and biological substances; Z90.89 Acquired absence of other organs; Z98.890 Other specified postprocedural states; Z95.5 Presence of coronary angioplasty implant and graft; Z87.891 Personal history of nicotine dependence

== ENCOUNTER → 2024-09-27 | Outpatient (CLI) | payer OTHER ==
[~2024-09-27] MED LIST changes: +GABAPENTIN ER300 MG PO; +METHOCARBAMOL750 M1 PO
== END | disposition home or self-care (01) ==
LOC: ORTHO 02:21
PROVIDERS: ATTEND Orthopaedic Surgery
DX: M79.642 Pain in left hand (principal)

== ENCOUNTER → 2024-10-05 | Outpatient (CLI) | payer OTHER ==
[2024-10-05 12:09] LABS: BASO % 0.3 % (0.0-1.0); EOS # 0.3 10*3/uL (0.0-0.4); EOS % 3.8 % (1.0-4.0); HEMATOCRIT 39.3 % (37.0-47.0); MEAN CELL VOLUME 90.3 fl (81.0-99.0); MEAN CORPUSCULAR HGB 28.3 pg (27.0-31.0); MEAN CORPUSCULAR HGB CONC 31.3 g/dl (33.0-37.0); MEAN PLATELET VOLUME 9.4 fl (9.6-12.3); MONO # 0.6 10*3/uL (0.1-1.0); MONO % 7.2 % (3.0-9.0); NEUT # 5.4 10*3/uL (2.3-7.9); NEUT % 60.4 % (47.0-73.0); PLATELET COUNT AUTOMATED 295 10*3/uL (130-400); RED BLOOD COUNT 4.35 10*6/uL (4.10-5.10); RED CELL DISTRI WIDTH 14.1 % (0-14.5); WHITE BLOOD COUNT 8.9 10*3/uL (4.8-10.8)
[2024-10-05 12:36] LABS: ALKALINE PHOSPHATASE 88 U/L (46-116); BUN 15 mg/dl (9-23); CHLORIDE 104 mmol/L (98-107); CHOLESTEROL 191 mg/dL (<200); LDL CHOLESTEROL 115 mg/dL (9-159); POTASSIUM 3.8 mmol/L (3.4-5.1); SGPT/ALT 13 U/L (5-49); THYROXINE (T4) TOTAL 6.4 ug/dl (4.5-10.9); TOTAL PROTEIN 7.2 gm/dL (6.0-8.0); TRIGLYCERIDES 172 mg/dl (<150)
[2024-10-05 12:43] LABS: VITAMIN D, 25-HYDROXY 38.7 ng/mL (30-100)
== END | disposition home or self-care (01) ==
LOC: LAB 04:38 → RESCLI 04:38
PROVIDERS: Student in an Organized Health Care Education/Training Program; ATTEND Internal Medicine
DX: I48.0 Paroxysmal atrial fibrillation (principal); E66.9 Obesity, unspecified; F32.9 Major depressive disorder, single episode, unspecified; E53.8 Deficiency of other specified B group vitamins

== ENCOUNTER → 2024-11-16 | Day surgery (SDC) | payer OTHER ==
[2024-11-14 15:19] LABS: BUN 11 mg/dl (9-23); CHLORIDE 105 mmol/L (98-107); POTASSIUM 4.1 mmol/L (3.4-5.1)
[~2024-11-16] VITALS: Ht 170.1 cm; Wt 142.4 kg
[~2024-11-16] MED LIST changes: +BUPivacaine 0.5% 10 ML VIAL ONE; +Lactated Ringer's Solution 500 ML IV ONE; +Lidocaine Hydrochloride 5 ML AMP ONE; +Lidocaine Hydrochloride 5 ML VIAL IV ONE; +PROPOFOL 200 MG/20 ML VIAL IV ONE; +ceFAZolin sodium/sodium chlor 1 GM/10 ML SYR IV ONE; +ceFAZolin sodium/sodium chlor 10 ML IV ONE
[2024-11-16 07:01] VITALS: BP 167/96
[2024-11-16 08:09] VITALS: BP 149/77
[2024-11-16 08:24] VITALS: BP 134/89
[2024-11-16 08:38] VITALS: BP 142/83
== END | disposition home or self-care (01) ==
LOC: SDC 11-14 08:00
PROVIDERS: ATTEND Orthopaedic Surgery
DX: G56.02 Carpal tunnel syndrome, left upper limb (principal); G43.909 Migraine, unspecified, not intractable, without status migrainosus; I10 Essential (primary) hypertension; J44.9 Chronic obstructive pulmonary disease, unspecified; K21.9 Gastro-esophageal reflux disease without esophagitis; F41.9 Anxiety disorder, unspecified; F32.A Depression, unspecified; I48.91 Unspecified atrial fibrillation; E03.9 Hypothyroidism, unspecified; G47.30 Sleep apnea, unspecified; F10.90 Alcohol use, unspecified, uncomplicated; Z87.891 Personal history of nicotine dependence; Z90.89 Acquired absence of other organs; Z98.890 Other specified postprocedural states; Z79.899 Other long term (current) drug therapy; Z91.040 Latex allergy status; Z88.8 Allergy status to other drugs, medicaments and biological substances; Z83.3 Family history of diabetes mellitus; Z82.49 Family history of ischemic heart disease and other diseases of the circulatory system

== ENCOUNTER → 2024-12-27 | Outpatient (CLI) | payer OTHER ==
[~2024-12-27] MED LIST changes: -BUPivacaine 0.5% 10 ML VIAL ONE; -Lactated Ringer's Solution 500 ML IV ONE; -Lidocaine Hydrochloride 5 ML AMP ONE; -Lidocaine Hydrochloride 5 ML VIAL IV ONE; -PROPOFOL 200 MG/20 ML VIAL IV ONE; -ceFAZolin sodium/sodium chlor 1 GM/10 ML SYR IV ONE; -ceFAZolin sodium/sodium chlor 10 ML IV ONE
== END ==
LOC: RESCLI 03:15
PROVIDERS: ATTEND Internal Medicine
DX: K21.9 Gastro-esophageal reflux disease without esophagitis (principal); F41.1 Generalized anxiety disorder; I48.0 Paroxysmal atrial fibrillation; F32.9 Major depressive disorder, single episode, unspecified; M25.561 Pain in right knee; J44.9 Chronic obstructive pulmonary disease, unspecified; J30.2 Other seasonal allergic rhinitis; G56.00 Carpal tunnel syndrome, unspecified upper limb; M54.30 Sciatica, unspecified side; E53.8 Deficiency of other specified B group vitamins; L98.9 Disorder of the skin and subcutaneous tissue, unspecified; R42 Dizziness and giddiness

== ENCOUNTER → 2025-05-03 | Outpatient (CLI) | payer OTHER ==
[2025-05-03 10:54] LABS: BASO # 0.0 10*3/uL (0.0-0.1); BASO % 0.3 % (0.0-1.0); EOS # 0.3 10*3/uL (0.0-0.4); EOS % 3.3 % (1.0-4.0); MEAN CELL VOLUME 91.1 fl (81.0-99.0); MEAN CORPUSCULAR HGB 28.4 pg (27.0-31.0); MEAN PLATELET VOLUME 9.6 fl (9.6-12.3); MONO # 0.7 10*3/uL (0.1-1.0); MONO % 7.3 % (3.0-9.0); NEUT # 5.6 10*3/uL (2.3-7.9); NEUT % 57.3 % (47.0-73.0); NUCLEATED RED BLOOD CELL 0.0 % (0.0-0.0); NUCLEATED RED BLOOD CELL 0.0 10*3/uL (0.0-0.0); PLATELET COUNT AUTOMATED 298 10*3/uL (130-400); RED CELL DISTRI WIDTH 15.0 % (0-14.5)
[2025-05-03 11:17] LABS: BUN 15.0 mg/dl (9-23); FREE T4 0.99 ng/dl (0.89-1.76); LDL CHOLESTEROL 128.0 mg/dL (9-159); SGPT/ALT 11.0 U/L (5-49)
[2025-05-03 11:35] LABS: VITAMIN D, 25-HYDROXY 46.0 ng/mL (30-100)
== END ==
LOC: RESCLI 08:50 → LAB 08:50
PROVIDERS: Student in an Organized Health Care Education/Training Program; ATTEND Internal Medicine
DX: I48.0 Paroxysmal atrial fibrillation (principal); E66.9 Obesity, unspecified

== ENCOUNTER → 2025-07-26 | Outpatient (CLI) | payer OTHER | END | disposition home or self-care (01) | LOC: RESCLI 01:44 | PROVIDERS: ATTEND Student in an Organized Health Care Education/Training Program | DX: G47.33 Obstructive sleep apnea (adult) (pediatric) (principal); K21.9 Gastro-esophageal reflux disease without esophagitis; F41.1 Generalized anxiety disorder; I48.0 Paroxysmal atrial fibrillation; F32.9 Major depressive disorder, single episode, unspecified; M25.561 Pain in right knee; G62.9 Polyneuropathy, unspecified; J44.9 Chronic obstructive pulmonary disease, unspecified; G47.00 Insomnia, unspecified; J30.2 Other seasonal allergic rhinitis; G56.00 Carpal tunnel syndrome, unspecified upper limb; M54.30 Sciatica, unspecified side; M50.30 Other cervical disc degeneration, unspecified cervical region; E53.8 Deficiency of other specified B group vitamins; E66.9 Obesity, unspecified; L98.9 Disorder of the skin and subcutaneous tissue, unspecified; R42 Dizziness and giddiness; E78.2 Mixed hyperlipidemia; Z79.899 Other long term (current) drug therapy; Z98.890 Other specified postprocedural states ==